=== PATIENT | female | born 1965 | race Two or more races ===

== ENCOUNTER 2022-11-09 15:34 | Emergency (ER) | payer MEDICAID ==
[~2022-11-09] VITALS: Ht 160 cm; Wt 92.5 kg
[2022-11-09] MEDS ORDERED: 0.9% SODIUM CHLORIDE 1,000 ML BAG IV ONE (15:36)
[2022-11-09] MEDS ORDERED: DEXTROSE 5%-WATER 250 ML BAG IV ONE (15:36)
[2022-11-09] MEDS ORDERED: AMIODARONE HCL 50 MG/ML 3 ML VIAL IV ONE (15:36)
[2022-11-09] MEDS ORDERED: CALCIUM GLUCONATE 100 MG/ML 10 ML IVP ONE (15:36)
[2022-11-09] MEDS ORDERED: EPINEPHrine 1:10,000 [1 MG/10 ML] SYRINGE IVP ONE ×2 (15:36)
[2022-11-09] MEDS ORDERED: SODIUM BICARBONATE [ADULT] 8.4% 50 MEQ/50 ML SYRINGE IVP ONE ×2 (15:36)
[2022-11-09] MEDS ORDERED: HEPARIN SODIUM,PORCINE 5,000 UNITS/ML VIAL IVP ONE ×2 (15:45→16:00)
[2022-11-09] MEDS ORDERED: HEPARIN SODIUM,PORCINE 5,000 UNITS/ML VIAL IVP PRN ×2 (15:45)
[2022-11-09] MEDS ORDERED: ASPIRIN 325 MG TABLET PO ONE (15:45)
[2022-11-09] MEDS ORDERED: MORPHINE SULFATE 2 MG/ML SYRINGE IVP ONE (16:00)
[2022-11-09] MEDS ORDERED: SODIUM CHLORIDE 0.9% 1,000 ML IV ONE (16:00)
[2022-11-09] MEDS ORDERED: ASPI81TA87 PO (16:02)
[2022-11-09] MEDS ORDERED: LEVO330T5 PO (16:02)
[2022-11-09] MEDS ORDERED: PROP225C8 PO (16:02)
[2022-11-09] MEDS ORDERED: CAND1TAB14 PO (16:02)
[2022-11-09] MEDS ORDERED: NEBI5TAB2 PO (16:02)
[2022-11-09 16:04] LABS: BASOPHILS % (AUTO) 0.5 % (0.0-2.0); EOSINOPHILS % (AUTO) 0.5 % (1.0-6.0); HEMATOCRIT 37.7 % (36-46); HEMOGLOBIN 11.7 g/dL (12.0-16.0); LYMPHOCYTES # (AUTO) 1.9 K/uL (1.0-4.8); LYMPHOCYTES % (AUTO) 14.4 % (22.0-44.0); MEAN CORPUSCULAR HEMOGLOBIN 28.7 pg (26.0-34.0); MEAN CORPUSCULAR HGB CONC 31.2 G/dL (31.0-37.0); MEAN CORPUSCULAR VOLUME 92 fL (80-100); MONOCYTES # (AUTO) 0.9 K/uL (0.1-1.0); MONOCYTES % (AUTO) 7.2 % (2.0-9.0); NEUTROPHILS # (AUTO) 10.1 K/uL (1.8-7.7); NEUTROPHILS % (AUTO) 77.4 % (40.0-70.0); PLATELET COUNT (AUTO) 268 K/uL (150-450); RED CELL DISTRIBUTION WIDTH 15.1 % (11.5-14.5)
[2022-11-09 16:19] LABS: INR 1.2 (0.9-1.1); PROTHROMBIN TIME 12.8 SEC (9.4-11.6)
[2022-11-09] MEDS: METOPROLOL TARTRATE 25 MG TABLET PO ONE ×2 (16:45→17:19)
[2022-11-09 16:59] LABS: CALCIUM, TOTAL 7.9 mg/dL (8.8-10.5); CREATININE 2.64 mg/dL (0.60-1.30); POTASSIUM 5.5 mmol/L (3.5-5.1)
[2022-11-09 17:00] LABS: ALBUMIN 2.8 g/dL (3.4-5.0)
[2022-11-09] MEDS: HEPARIN SODIUM 25000 UNITS/D5W 250 ML IV PRN ×2 (17:01→22:53)
[2022-11-09] MEDS ORDERED: PHENYLEPHRINE HCL IN 0.9% NACL 400 MCG/10 ML SYRINGE IVP ONE (17:08)
[2022-11-09 17:10] LABS: BILIRUBIN,TOTAL 0.7 mg/dL (0.1-1.0); TOTAL PROTEIN, SERUM 6.3 g/dL (6.4-8.2)
[2022-11-09] MEDS ORDERED: IOHEXOL 350 MG/ML 100 ML VIAL ONE (17:27)
[2022-11-09] MEDS ORDERED: SODIUM CHLORIDE 0.9% 100 ML ONE ×2 (17:27→18:02)
[2022-11-09] MEDS ORDERED: PHENYLEPHRINE 200 MG/D5%-WATER 250 ML IV PRN (17:30)
[2022-11-09] MEDS ORDERED: NOREPINEPHRINE 8 MG/D5%-WATER 250 ML IV PRN (17:45)
[2022-11-09 18:13] LABS: LACTIC ACID 2.6 mmol/L (0.4-2.0)
[2022-11-09] MEDS ORDERED: AMIODARONE HCL 150 MG in DEXTROSE 5%-WATER 97 ML IV ONE (18:20)
[2022-11-09 18:24] LABS: ABG BASE EXCESS -11.2 mmol/L (-2.0-3.0); ABG CARBOXYHEMOGLOBIN 0.6 % (0.0-1.5); ABG HCO3 17.5 mmol/L (22.0-26.0); ABG METHEMOGLOBIN 0.1 % (0.0-1.5); ABG OXYGEN CONTENT 19.5 mL/dL (15.0-23.0); ABG OXYGEN SATURATION 99.7 % (95.0-98.0); ABG PH 7.448 (7.35-7.450); ABG TOTAL HEMOGLOBIN 13.3 G/dL (12.0-18.0); PO2, ARTERIAL BG 373.7 mmHg (84.0-92.0); SOURCE, BLOOD GAS ARTERIAL; TEMPERATURE, FAHRENHEIT, BG 97.3 FAHREN (96.0-98.6)
[2022-11-09] MEDS ORDERED: AMIODARONE HCL 360 MG in DEXTROSE 5%-WATER 242.8 ML IV ONE (18:30)
[2022-11-09 18:40] LABS: ABG BASE EXCESS -14.9 mmol/L (-2.0-3.0); ABG CARBOXYHEMOGLOBIN 0.4 % (0.0-1.5); ABG HCO3 15.1 mmol/L (22.0-26.0); ABG METHEMOGLOBIN 0.2 % (0.0-1.5); ABG OXYGEN CONTENT 19.9 mL/dL (15.0-23.0); ABG OXYGEN SATURATION 99.7 % (95.0-98.0); ABG OXYHEMOGLOBIN 99.1 % (94.0-100.0); ABG PH 7.389 (7.35-7.450); ABG TOTAL HEMOGLOBIN 13.7 G/dL (12.0-18.0); PO2, ARTERIAL BG 331.9 mmHg (84.0-92.0); SOURCE, BLOOD GAS ARTERIAL; TEMPERATURE, FAHRENHEIT, BG 97.3 FAHREN (96.0-98.6)
[2022-11-09] MEDS ORDERED: ETOMIDATE 2 MG/ML 10 ML VIAL ONE (19:29)
[2022-11-09] MEDS ORDERED: ALTEPLASE 100 MG VIAL IVP PRN ×2 (19:30→20:15)
[2022-11-09] MEDS ORDERED: TRANEXAMIC ACID 1,000 MG in DEXTROSE 5%-WATER 50 ML IV ONE (19:30)
[2022-11-09] MEDS ORDERED: EPINEPHrine 1:10,000 [1 MG/10 ML] SYRINGE ONE (20:04)
[2022-11-09] MEDS ORDERED: EPINEPHrine 2 MG in DEXTROSE 5%-WATER 248 ML IV PRN ×4 (20:15)
[2022-11-09] MEDS ORDERED: VASOPRESSIN 40 UNITS in DEXTROSE 5%-WATER 98 ML IV PRN (20:15)
[2022-11-09] MEDS ORDERED: DOPamine 400MG/D5W[STANDARD] 250 ML IV PRN (20:15)
[2022-11-09 20:37] LABS: BASOPHILS % (AUTO) 0.2 % (0.0-2.0); EOSINOPHILS % (AUTO) 0.3 % (1.0-6.0); HEMATOCRIT 22.1 % (36-46); LYMPHOCYTES # (AUTO) 2.3 K/uL (1.0-4.8); MEAN CORPUSCULAR HEMOGLOBIN 29.5 pg (26.0-34.0); MEAN CORPUSCULAR HGB CONC 29.5 G/dL (31.0-37.0); MEAN CORPUSCULAR VOLUME 100 fL (80-100); MONOCYTES # (AUTO) 0.3 K/uL (0.1-1.0); NEUTROPHILS # (AUTO) 6.5 K/uL (1.8-7.7); NEUTROPHILS % (AUTO) 71.5 % (40.0-70.0); RED BLOOD CELL COUNT(AUTO) 2.21 MIL/uL (4.00-5.20); RED CELL DISTRIBUTION WIDTH 16.9 % (11.5-14.5)
[2022-11-09 20:40] LABS: HEMOGLOBIN 6.5 g/dL (12.0-16.0)
[2022-11-09 21:07] LABS: ABG BASE EXCESS -17.3 mmol/L (-2.0-3.0); ABG CARBOXYHEMOGLOBIN 0.4 % (0.0-1.5); ABG METHEMOGLOBIN 1.9 % (0.0-1.5); ABG OXYGEN CONTENT 3.1 mL/dL (15.0-23.0); ABG OXYHEMOGLOBIN 15.9 % (94.0-100.0); ABG TOTAL HEMOGLOBIN 13.8 G/dL (12.0-18.0); SOURCE, BLOOD GAS ARTERIAL; TEMPERATURE, FAHRENHEIT, BG 97.6 FAHREN (96.0-98.6)
[2022-11-09 21:08] LABS: PLATELET COUNT (AUTO) 81 K/uL (150-450)
[2022-11-09 21:12] LABS: ALANINE AMINOTRANSFERASE 28 U/L (12-78); ANION GAP 12 mmol/L (8-16); ASPARTATE AMINOTRANSFERASE 28 U/L (15-37); BILIRUBIN,TOTAL 0.2 mg/dL (0.1-1.0); CARBON DIOXIDE 10 mmol/L (22-29); CHLORIDE 127 mmol/L (98-107); CREATININE 0.89 mg/dL (0.60-1.30); GLOMERULAR FILTR. RATE CALC > 60 mL/min (>60); GLUCOSE,RANDOM 67 mg/dL (70-110); SODIUM SERUM 149 mmol/L (136-145); UREA NITROGEN, BLOOD 17 mg/dL (7-18)
[2022-11-09 21:23] LABS: POTASSIUM 1.5 mmol/L (3.5-5.1)
[2022-11-09] MEDS ORDERED: ROCURONIUM BROMIDE 10 MG/ML 5 ML VIAL ONE (21:33)
[2022-11-09] MEDS ORDERED: FentaNYL CIT 1000MCG/0.9% NACL 100 ML IV PRN (22:00)
[2022-11-09] MEDS ORDERED: FentaNYL CIT 1000MCG/0.9% NACL 100 ML IV ONE (22:23)
[2022-11-09] MEDS: POTASSIUM CHL 10 MEQ/WATER 50 ML IV SCH ×2 (22:47→23:06)
[2022-11-09 22:51] LABS: ABG PCO2 19 mmHg (35-45); O2 DEVICE,BLOOD GAS NON REBREATHER (ROOM AIR); SITE, BLOOD GAS LFT RADIAL
[2022-11-09 22:53] LABS: ABG PCO2 17 mmHg (35-45)
[2022-11-09 22:54] LABS: ABG A-A DIFF O2 365.7 mmHg (10-20.0); SITE, BLOOD GAS ARTERIAL LINE
[2022-11-09 22:55] LABS: O2 DEVICE,BLOOD GAS NON REBREATHER (ROOM AIR)
[2022-11-09 22:57] LABS: ABG PH 6.839 (7.35-7.450)
[2022-11-09 22:58] LABS: ABG HCO3 9.3 mmol/L (22.0-26.0); ABG PCO2 100 mmHg (35-45); PO2, ARTERIAL BG 20.6 mmHg (84.0-92.0)
[2022-11-09 23:00] LABS: ABG OXYGEN SATURATION 16.3 % (95.0-98.0); SITE, BLOOD GAS ARTERIAL LINE
[2022-11-09 23:01] LABS: ABG A-A DIFF O2 594.5 mmHg (10-20.0); O2 DEVICE,BLOOD GAS AMBU BAG (ROOM AIR)
[2022-11-09 23:55] LABS: ALBUMIN 1.6 g/dL (3.4-5.0); ALKALINE PHOSPHATASE 111 U/L (46-116); CALCIUM, TOTAL 6.5 mg/dL (8.8-10.5); TOTAL PROTEIN, SERUM 4.4 g/dL (6.4-8.2)
[2022-11-10 00:22] VITALS: BP 113/56
[2022-11-10 00:26] LABS: ABG BASE EXCESS -22.2 mmol/L (-2.0-3.0); ABG CARBOXYHEMOGLOBIN 0.1 % (0.0-1.5); ABG OXYGEN CONTENT 1.8 mL/dL (15.0-23.0); ABG OXYHEMOGLOBIN 8.6 % (94.0-100.0); ABG TOTAL HEMOGLOBIN 14.8 G/dL (12.0-18.0); SOURCE, BLOOD GAS ARTERIAL
[2022-11-10] MEDS ORDERED: AMIODARONE HCL 540 MG in DEXTROSE 5%-WATER 239.2 ML IV ONE (00:30)
[2022-11-10] MEDS ORDERED: SODIUM BICARBONATE [ADULT] 8.4% 50 MEQ/50 ML SYRINGE IVP ONE (00:32)
[2022-11-10] MEDS ORDERED: EPINEPHrine 1:10,000 [1 MG/10 ML] SYRINGE ONE (00:37)
[2022-11-10 01:09] LABS: ABG PCO2 94 mmHg (35-45); ABG PH 6.757 (7.35-7.450)
[2022-11-10 01:10] LABS: PO2, ARTERIAL BG 14.5 mmHg (84.0-92.0); SITE, BLOOD GAS ARTERIAL LINE
[2022-11-10 01:11] LABS: ABG A-A DIFF O2 608.4 mmHg (10-20.0); O2 DEVICE,BLOOD GAS VENT (ROOM AIR); PEEP,BG 5 cm H2O; VT, ABG 400 ml
[2022-11-10] MEDS ORDERED: AMIODARONE HCL 750 MG in DEXTROSE 5%-WATER 485 ML IV SCH (18:30)
[2022-11-10] MEDS ORDERED: FentaNYL CIT 1000MCG/0.9% NACL 100 ML IV PRN (22:00)
== END 2022-11-10 01:25 | disposition short-term general hospital (02) ==
LOC: EMS 15:35
DX: R57.0 Cardiogenic shock (principal); I26.99 Other pulmonary embolism without acute cor pulmonale; I10 Essential (primary) hypertension
CPT/HCPCS: 36556; 82550; 83605; 83880; 84484; 85025; 85379; 85610; 85730; 86850; 86900; 86901; 86923; 86920; 93306; 92950; 94002; 36600 ×2; 71045; 71275; 36430; 93005; 96361; 96365; 96367; 96368; 96375; 31500; 99291; 84145; 80053; 36415; 82805; P9016; J0282 ×2; J0610; J3490 ×6; J1644 ×2; J2270; Q9967 ×2; J3480; J7030; J7050; J2370 ×2; J0171 ×3; J7060 ×3; J2997